=== PATIENT | male | born 1975 | race Caucasian/White ===

== ENCOUNTER 2017-01-06 17:29 | Emergency (ER) | payer BC, OTHER ==
[~2017-01-06] VITALS: Ht 185.4 cm; Wt 92.2 kg
[2017-01-06 17:41] VITALS: BP 131/81
== END 2017-01-06 18:47 | disposition home or self-care (01) ==
LOC: ED 18:41
DX: S05.11XA Contusion of eyeball and orbital tissues, right eye, initial encounter (principal); H57.11 Ocular pain, right eye; X58.XXXA Exposure to other specified factors, initial encounter; Y93.89 Activity, other specified; Y99.8 Other external cause status; Y92.328 Other athletic field as the place of occurrence of the external cause
CPT/HCPCS: 70486; 99284